=== PATIENT | male | born 1975 | race African-American/Black ===

== ENCOUNTER 2022-07-11 15:26 | Emergency (ER) | payer OTHER ==
[2022-07-11 15:42] VITALS: BP 133/98; PULSE 97; RESP 18
--- NOTE | 2022-07-11 15:46 | ED ---
General Adult HPI - General Stated complaint: Retirement clearance Time Seen by Provider: 07/11/22 15:34 Source: patient, police, RN notes reviewed, old records reviewed Mode of arrival: ambulatory - History of Present Illness Initial comments: 47-year-old male presenting from the court house for medical clearance. Patient had been tased. Patient is calm and cooperative at the time my evaluation. He states that the Taser barbs had hit his shoulder and back. Patient denies any significant pain complaints. No palpitations. - Related Data Allergies Allergy/AdvReac Type Severity Reaction Status Date / Time No Known Allergies Allergy Verified 07/11/22 15:42 Review of Systems ROS Statement: Those systems with pertinent positive or pertinent negative responses have been documented in the HPI. ROS Other: All systems not noted in ROS Statement are negative. Past Medical History Past Medical History: No Reported History Past Surgical History: No Surgical Hx Reported Past Psychological History: No Psychological Hx Reported Smoking Status: Current every day smoker Past Alcohol Use History: None Reported Past Drug Use History: Marijuana General Exam General appearance: alert, in no apparent distress Head exam: Present: atraumatic, normocephalic Eye exam: Present: normal appearance, PERRL Neck exam: Present: normal inspection Respiratory exam: Present: normal lung sounds bilaterally. Absent: respiratory distress, wheezes Cardiovascular Exam: Present: regular rate, normal rhythm GI/Abdominal exam: Present: soft. Absent: distended, tenderness, guarding Neurological exam: Present: alert, oriented X3, CN II-XII intact. Absent: motor sensory deficit Psychiatric exam: Present: normal affect, normal mood Skin exam: Present: warm, dry, other (Small puncture wound to the lower back no retained nilsa) Course Vital Signs 07/11/22 15:38 Pulse Rate 97 Respiratory 18 Rate Blood Pressure 133/98 O2 Sat by Pulse 100 Oximetry EKG Findings - EKG Comments: EKG Findings:: Sinus rhythm rate of 84, VA interval 129, QRS duration 109, QTC 397 Medical Decision Making - Medical Decision Making Patient has stable vitals. He is in sinus rhythm. He is stable for discharge into police custody. Disposition Clinical Impression: Medical clearance for incarceration, History of Taser shock Disposition: HOME SELF-CARE Condition: Fair Instructions (If sedation given, give patient instructions): Care After Taser Removal (ED) Is patient prescribed a controlled substance at d/c from ED?: No Referrals: None,Stated [Primary Care Provider] - 1-2 days Time of Disposition: 15:46
== END 2022-07-11 16:10 | disposition home or self-care (01) ==
LOC: EC 15:26
DX: F17.200 Nicotine dependence, unspecified, uncomplicated; F12.90 Cannabis use, unspecified, uncomplicated; Z86.74 Personal history of sudden cardiac arrest
CPT/HCPCS: 93005

== ENCOUNTER → 2025-01-31 | Outpatient (CLI) | payer OTHER ==
--- NOTE | 2025-01-31 09:47 | XR ---
Right hip. HISTORY: Pain COMPARISON: None. TECHNIQUE: 2 views right hip were obtained FINDINGS: There is no fracture, dislocation or focal intraosseous abnormality. There is minimal joint space hima rowing and hypertrophic spurring indicating minimal osteoarthritis. IMPRESSION: Minimal osteoarthritis with no other significant abnormality. [facility], , 01/31/2025 9:45 AM
--- NOTE | 2025-01-31 09:50 | XR ---
Right hand History: Pain. COMPARISON: None. TECHNIQUE: 3 views right hand were obtained. FINDINGS: There is no fracture, dislocation or focal intraosseous abnormality. There is mild narrowing of the radiocarpal joint, and mild narrowing of the scapholunate articulation . There are no soft tissue abnormalities. IMPRESSION: Findings raise the question of early /mild SLAC wrist [facility], , 01/31/2025 9:48 AM
== END | disposition home or self-care (01) ==
LOC: RADXRMAIN 09:05
PROVIDERS: ATTEND Nurse Practitioner Family
DX: M16.11 Unilateral primary osteoarthritis, right hip (principal); M79.641 Pain in right hand
CPT/HCPCS: 73502